=== PATIENT | female | born 1960 | race Caucasian/White ===

== ENCOUNTER 2021-08-07 11:24 | Emergency (ER) | payer OTHER ==
[~2021-08-07] VITALS: Ht 167.6 cm; Wt 99.8 kg
[2021-08-07] MEDS ORDERED: HYDROcodone/APAP 5/325 MG 1 TAB TAB PO ONE (12:15)
[2021-08-07] MEDS ORDERED: ACETAMINOPHEN 325 MG TAB PO ONE (12:15)
[2021-08-07] MEDS ORDERED: KETOROLAC 30 MG/ML VIAL IM ONE (12:15)
[2021-08-07 12:45] VITALS: BP 154/95
--- NOTE | 2021-08-07 13:00 | NUR ---
C/O 7/10 BACK PAIN, LLQ ABD PAIN X 3 DAYS. PMH: HTN
[2021-08-07 14:21] VITALS: BP 156/93
--- NOTE | 2021-08-07 14:21 | NUR ---
Patient discharged with v/s stable. Written and verbal after care instructions given and explained. Patient verbalized understanding. Ambulatory with steady gait. All questions addressed prior to discharge. Advised to follow up with PMD.
== END 2021-08-07 14:21 | disposition home or self-care (01) ==
LOC: MED 11:24
DX: M54.50 Low back pain, unspecified (principal); E11.9 Type 2 diabetes mellitus without complications
CPT/HCPCS: 74176; 96372; 99284; J1885